=== PATIENT | female | born 1945 | race Caucasian/White ===

== ENCOUNTER → 2017-05-24 | Outpatient (CLI) | payer MEDICARE ==
--- NOTE | ~2017-05-24 | MY11 ---
[facility] A Service of [facility] RADIOLOGY TEXT RESULTS PATIENT: CA REEVES LOCATION: [facility] : 47 UNIT #: [id number] AGE: [address]: Matilda Adan SEX: F ORDER DR: [id number] [address] [address] [id number] O MR#: [id number] Acc #: [id number] NAME: CA REEVES : 1945 SEX: F STUDY DATE/TIME: 05/24/2017 14:45 UNIT: [facility] ROOM: STUDY DESCRIPTION: MY Mammogram Screening Dig Manish Attending Physician: Matilda Adan A.P.R.N. Referring Physician: Matilda Adan A.P.R.N. Ordering Physician: Matilda Adan A.P.R.N. Primary Care Physician: Kya Lane A.P.R.N. MEDICAL IMAGING REPORT This report is preliminary unless electronic signature is present. EXAM Digital screening mammogram, 05/24/2017, [facility]. HISTORY 71-year-old woman, no risk elevation. Annual screen. COMPARISON Mammograms date to 04/15/2009 with most recent 07/08/2015. FINDINGS Digital imaging of each breast was completed utilizing a two-view examination of each breast in craniocaudal and mediolateral-oblique projections. Review and interpretation of digital mammograms include a second review in conjunction with FDA-approved CAD device. There is a normal parenchymal presentation bilaterally consistent with the patient's age. There are no breast masses imaged and no parenchymal asymmetry is visualized. There are no suspicious microcalcifications and I see no focal architectural disturbance. IMPRESSION Negative screening digital mammogram. One-year followup recommended. Patients over the age of 40 are entered into a reminder system with target due date for the next mammogram. A result letter will also be sent to the patient. BIRADS: 1 Negative. ADDENDUM Breast parenchyma is fatty replaced. [facility] A Service [facility] RADIOLOGY TEXT RESULTS PATIENT: CA REEVES LOCATION: [facility] : 47 UNIT #: [id number] AGE: [address]: Matilda Adan SEX: F ORDER DR: Dictated by... Jasson Childers M.D. THIS IS AN ELECTRONICALLY VERIFIED REPORT Jasson Childers M.D. at 05/26/2017 1:44 PM AMELIA/quynh TD: 05/24/2017 20:30 JOB #: [id number] MEDICAL IMAGING REPORT Page 1 of 1
== END | disposition home or self-care (01) ==
LOC: SMAM 14:00
DX: Z12.31 Encounter for screening mammogram for malignant neoplasm of breast (principal)
CPT/HCPCS: G0202